=== PATIENT | female | born 1980 | race Caucasian/White ===

== ENCOUNTER → 2017-02-27 | Outpatient (CLI) | payer BC ==
[2017-02-27 14:16] LABS: HEMOGLOBIN 13.5 gm/dl (12.3-15.3); RED BLOOD COUNT 4.72 M/UL (4.00-5.10); WHITE BLOOD COUNT 18.4 K/UL (4.5-11.0)
== END ==
LOC: LAB 13:46
PROVIDERS: Family Medicine
DX: D72.829 Elevated white blood cell count, unspecified (principal)
CPT/HCPCS: 36415; 85027

== ENCOUNTER → 2017-05-12 | Day surgery (SDC) | payer BC ==
[~2017-05-12] VITALS: Ht 172.7 cm; Wt 84.8 kg
== END | disposition home or self-care (01) ==
LOC: OR 12:17
PROVIDERS: Podiatrist Foot & Ankle Surgery
PROC: 0QSP04Z Reposition Left Metatarsal with Internal Fixation Device, Open Approach (ICD-10-PCS; 2017-05-12)
PROC: 0QBP0ZZ Excision of Left Metatarsal, Open Approach (ICD-10-PCS; 2017-05-12)
PROC: 0QBR0ZZ Excision of Left Toe Phalanx, Open Approach (ICD-10-PCS; principal; 2017-05-12 13:00)
DX: M20.12 Hallux valgus (acquired), left foot (principal); M20.11 Hallux valgus (acquired), right foot; Z90.49 Acquired absence of other specified parts of digestive tract
CPT/HCPCS: 73620; 73630; 76000; C1713; J0690; J1885; J2250; J2405; J3010; J7120

== ENCOUNTER → 2020-11-30 | Outpatient (CLI) | payer BC | LOC: ECHO 10:54 | DX: I34.1 Nonrheumatic mitral (valve) prolapse (principal); I07.1 Rheumatic tricuspid insufficiency | CPT/HCPCS: ECHO; 93306 ==

== ENCOUNTER → 2022-06-17 | Outpatient (CLI) | payer BC | LOC: MAMO 06-13 09:30 | DX: Z12.31 Encounter for screening mammogram for malignant neoplasm of breast (principal) | CPT/HCPCS: 77063; 77067 ==